=== PATIENT | female | born 1995 | race Two or more races ===

== ENCOUNTER 2018-01-18 18:43 | Emergency (ER) | payer OTHER ==
[2018-01-18 19:35] LABS: ABS Basophils 0 10^3/ul (0-0.2); ABS Eosinophils 0 10^3/ul (0-0.6); ABS Lymphocytes 0.8 10^3/ul (1.0-4.8); ABS Monocytes 0.4 10^3/ul (0-0.8); ABS Neutrophils 6.3 10^3/ul (1.5-7.7); ABS Nucleated RBC 0 10^3/ul; Eosinophil % 0.4 % (0-6); Hematocrit 43 % (35-47); Hemoglobin 14.6 g/dl (12.0-16.0); Lymphocyte % 10.9 % (25-47); Mean Corpuscular HGB Conc 35 g/dl (31-36); Mean Corpuscular Hemoglobin 30 pg (27-31); Mean Corpuscular Volume 88 fL (80-97); Mean Platelet Volume 8.5 um3 (7.4-10.4); Nucleated Red Blood Cells % 0.1; Platelet Count 213 10^3/ul (150-450); Red Blood Count 4.82 10^6/ul (4.00-5.40); Red Cell Distribution Width 13 % (10.5-15); White Blood Count 7.6 10^3/ul (3.5-10.8)
[2018-01-18 19:55] LABS: EGFR Non-African American 101.6 (>60)
[2018-01-18] MEDS ORDERED: NS 0.9% 1000 ML* 1,000 ML IV ONE (21:11)
--- NOTE | 2018-01-18 21:19 | ED ---
Abdominal Pain/Female - HPI Summary HPI Summary: This patient is a 22 year old F presenting to [facility] with a chief complaint of waxing and waning upper and umbilical abd pain that began 3 days ago. The patient rates the pain 8/10 in severity. Symptoms aggravated by eating. Symptoms alleviated by nothing. Patient reports diarrhea, nausea, vomiting, fever (resolved), and headache. - History of Current Complaint Chief Complaint: EDNauseaVomitDiarrh Stated Complaint: NAUSEA/ABD PAIN Time Seen by Provider: 01/18/18 20:51 Hx Obtained From: Patient ?: No Onset/Duration: Sudden Onset, Lasting Days, Still Present Timing: Constant Severity Initially: Severe Severity Currently: Severe Pain Intensity: 8 Pain Scale Used: 0-10 Numeric Location: Umbilical, Other - Upper Radiates: No Aggravating Factor(s): Food Alleviating Factor(s): Nothing Associated Signs and Symptoms: Positive: Other: - Positive diarrhea, nausea, vomiting, fever (resolved), and headache. Allergies/Adverse Reactions: Allergies Allergy/AdvReac Type Severity Reaction Status Date / Time No Known Allergies Allergy Verified 01/18/18 18:56 PMH/Surg Hx/FS Hx/Imm Hx Previously Healthy: Yes Opthamlomology History: Denies: Hx Legally Blind EENT History: Denies: Hx Deafness - Surgical History Hx Anesthesia Reactions: No - Immunization History Date of Influenza Vaccine: 2018 Infectious Disease History: No Infectious Disease History: Denies: Traveled Outside the [place] in Last 30 Days - Family History Known Family History: Negative: Cardiac Disease, Diabetes - Social History Occupation: Student Lives: Dormitory/Roommates Alcohol Use: None Hx Substance Use: No Substance Use Type: Reports: None Hx Tobacco Use: No Smoking Status (MU): Never Smoked Tobacco Review of Systems Positive: Fever Positive: Abdominal Pain, Vomiting, Diarrhea, Nausea Positive: Headache All Other Systems Reviewed And Are Negative: Yes Physical Exam - Summary Physical Exam Summary: Appearance: Well appearing, no pain distress Skin: warm, dry, reflects adequate perfusion Head/face: normal Eyes: EOMI, NALINI ENT: normal Neck: supple, non-tender Respiratory: CTA, breath sounds present Cardiovascular: RRR, pulses symmetrical Abdomen: RLQ tenderness, soft Bowel: present Musculoskeletal: normal, strength/ROM intact Neuro: normal, sensory motor intact, A&Ox3 Triage Information Reviewed: Yes Vital Signs On Initial Exam: Initial Vitals Temp Pulse Resp BP Pulse Ox 98.3 F 100 16 97/65 96 01/18/18 18:51 01/18/18 18:51 01/18/18 18:51 01/18/18 18:51 01/18/18 18:51 Vital Signs Reviewed: Yes Diagnostics - Vital Signs Vital Signs Temp Pulse Resp BP Pulse Ox 01/18/18 18:51 98.3 F 100 16 97/65 96 - Laboratory Lab Results: Lab Results 01/18/18 01/18/18 Range/Units 19:23 19:23 WBC 7.6 (3.5-10.8) 10^3/ul RBC 4.82 (4.00-5.40) 10^6/ul Hgb 14.6 (12.0-16.0) g/dl Hct 43 (35-47) % MCV 88 (80-97) fL MCH 30 (27-31) pg MCHC 35 (31-36) g/dl RDW 13 (10.5-15) % Plt Count 213 (150-450) 10^3/ul MPV 8.5 (7.4-10.4) um3 Neut % (Auto) 82.9 (38-83) % Lymph % (Auto) 10.9 L (25-47) % [place] % (Auto) 5.5 (0-7) % Eos % (Auto) 0.4 (0-6) % Baso % (Auto) 0.3 (0-2) % Absolute Neuts (auto) 6.3 (1.5-7.7) 10^3/ul Absolute Lymphs (auto) 0.8 L (1.0-4.8) 10^3/ul Absolute Monos (auto) 0.4 (0-0.8) 10^3/ul Absolute Eos (auto) 0 (0-0.6) 10^3/ul Absolute Basos (auto) 0 (0-0.2) 10^3/ul Absolute Nucleated RBC 0 10^3/ul Nucleated RBC % 0.1 Sodium 137 (135-145) mmol/L Potassium 4.1 (3.5-5.0) mmol/L Chloride 102 (101-111) mmol/L Carbon Dioxide 29 (22-32) mmol/L Anion Gap 6 (2-11) mmol/L BUN 16 (6-24) mg/dL Creatinine 0.73 (0.51-0.95) mg/dL Est GFR ( Amer) 123.0 (>60) Est GFR (Non-Af Amer) 101.6 (>60) BUN/Creatinine Ratio 21.9 H (8-20) Glucose 112 H (70-100) mg/dL Calcium 9.5 (8.6-10.3) mg/dL Total Bilirubin 0.60 (0.2-1.0) mg/dL AST 16 (13-39) U/L ALT 9 (7-52) U/L Alkaline Phosphatase 61 (34-104) U/L C-Reactive Protein 44.03 H (<8.01) mg/L Total Protein 7.7 (6.4-8.9) g/dL Albumin 4.5 (3.2-5.2) g/dL Globulin 3.2 (2-4) g/dL Albumin/Globulin Ratio 1.4 (1-3) Lipase 12 (11.0-82.0) U/L Beta HCG, Quant < 0.60 mIU/mL Result Diagrams: 01/18/18 19:23 01/18/18 19:23 Lab Statement: Any lab studies that have been ordered have been reviewed, and results considered in the medical decision making process. - CT CT Abdomen and Pelvis CT Interpretation Completed By: Radiologist Summary of CT Findings: CT abdomen and pelvis reveals, per radiologist, 1. There is mild to moderate wall thickening of the terminal and distal ileum and of the cecum. Some of this is incomplete distention however suspect there is underlying ileitis and limited colitis here. There is not significant. inflammatory change in the surrounding fat. 2. Normal appendix. 3. No obstruction, mass, or abscess. ED physician has reviewed this radiology report. Re-Evaluation - Re-Evaluation First Eval Re-Evaluation Time: 01:50 Change: Unchanged Comment: Discussed results and plan of care with patient Abdominal Pain Fem Course/Dx - Course Course Of Treatment: This patient is a 22 year old F presenting to [facility] with a chief complaint of waxing and waning upper and umbilical abd pain that began 3 days ago. Physical Exam Findings: RLQ tenderness. CT abdomen and pelvis reveals , per radiologist, 1. There is mild to moderate wall thickening of the terminal and distal ileum and of the cecum. Some of this is incomplete distention however suspect there is underlying ileitis and limited colitis here. There is not significant inflammatory change in the surrounding fat. 2. Normal appendix. 3. No obstruction, mass, or abscess. Bloodwork and UA obtained. In the ED course the patient was given contrast, fluids, Zofran, and Bactrim. Discussed with Dr. Allen, she recommended the patient does not to be admitted. Patient will be discharged with prescription for Protonix and Bactrim and follow up from PCP and GI. The patient is agreeable with this plan. - Diagnoses Differential Diagnosis: Positive: Appendicitis, Ovarian Cyst, Pancreatitis, Renal Colic Provider Diagnoses: Abdominal pain, Inflammatory bowel disease, UTI (urinary tract infection) - Provider Notifications Discussed Care Of Patient With: Marian Allen Time Discussed With Above Provider: 01:56 Instructed by Provider To: Other - Consult with Dr. Allen (hospitalist) at 0156. She recommends patient be discharged with GI follow up. Discharge - Sign-Out/Discharge Documenting (check all that apply): Patient Departure - Discharge home - Discharge Plan Condition: Stable Disposition: HOME Prescriptions: Pantoprazole TAB (NF) [Protonix TAB (NF)] 40 mg PO DAILY #30 tab Sulfamethox/Trimethoprim DS* [Bactrim DS 800/160 TAB*] 1 tab PO BID #6 tab Patient Education Materials: Sulfamethoxazole/Trimethoprim (By mouth), Pantoprazole (By mouth), Urinary Tract Infection in Women (ED), Abdominal Pain ( ED) Forms: *School Release Referrals: [facility] [Outside] Renetta Anderson MD [Medical Doctor] - Additional Instructions: RETURN TO THE EMERGENCY DEPARTMENT FOR NEW OR WORSENING SYMPTOMS - Billing Disposition and Condition Condition: STABLE Disposition: Home - Attestation Statements Document Initiated by Scribe: Yes Documenting Scribe: Jing Tovar Provider For Whom Kavin is Documenting (Include Credential): Irving Sullivan MD Scribe Attestation: Jing Hemphill, scribed for Irving Sullivan MD on 01/19/18 at 0210. Scribe Documentation Reviewed: Yes Provider Attestation: The documentation as recorded by the Jing zamudio accurately reflects the service I personally performed and the decisions made by Irving roth MD
[2018-01-18] MEDS ORDERED: Ondansetron INJ* 2 MG/ML VIAL IV ONE (21:50)
[2018-01-19] MEDS ORDERED: Iohexol 300* (CONTRAST) 10 ML SDV IV ONE (00:10)
[2018-01-19 00:38] LABS: Urine Appearance Cloudy; Urine Blood 3+ (Negative); Urine Color Yellow; Urine Ketones 1+ (Negative); Urine Protein 1+(30 mg/dL) (Negative); Urine Red Blood Cell 3+(>10/hpf) (Absent); Urine Specific Gravity 1.011 (1.010-1.030); Urine Urobilinogen Negative (Negative); Urine White Blood Cell 2+(11-20/hpf) (Absent)
--- NOTE | 2018-01-19 01:26 | RAD ---
EXAM: CT Abdomen and Pelvis With Intravenous Contrast EXAM DATE/TIME: 01/19/2018 12:09 AM CLINICAL HISTORY: 22 years old, female; Pain; Abdominal pain; Flank; Right lower quadrant (rlq); Additional info: Abd pain/appendicitis TECHNIQUE: Axial computed tomography images of the abdomen and pelvis with intravenous contrast. All CT scans at this facility use at least one of these dose optimization techniques: automated exposure control; mA and/or kV adjustment per patient size (includes targeted exams where dose is matched to clinical indication); or iterative reconstruction. Coronal and sagittal reformatted images were created and reviewed. CONTRAST: 67 ml of OMNI 300 administered intravenously. COMPARISON: No relevant prior studies available. FINDINGS: Lower thorax: No acute findings. ABDOMEN: Liver: Normal. No mass. Gallbladder and bile ducts: Normal. No calcified stones. No ductal dilation. Pancreas: Normal. No ductal dilation. Spleen: Normal. No splenomegaly. Adrenals: Normal. No mass. Kidneys and ureters: Normal. No hydronephrosis. Stomach and bowel: There is mild to moderate wall thickening of the terminal and distal ileum into the cecum. Some of this is incomplete distention however suspect there is underlying ileitis and limited colitis here. There is not significant inflammatory change in the surrounding fat. Appendix: Normal appendix. PELVIS: Bladder: Unremarkable as visualized. Reproductive: Unremarkable as visualized. ABDOMEN and PELVIS: Intraperitoneal space: See Stomach And Bowel Finding. Bones/joints: No acute fracture. No dislocation. Soft tissues: No obstruction, mass, or abscess. Vasculature: Normal. No abdominal aortic aneurysm. Lymph nodes: Normal. No enlarged lymph nodes. IMPRESSION: 1. There is mild to moderate wall thickening of the terminal and distal ileum and of the cecum. Some of this is incomplete distention however suspect there is underlying ileitis and limited colitis here. There is not significant inflammatory change in the surrounding fat. 2. Normal appendix. 3. No obstruction, mass, or abscess. To contact [facility] with a general question: [facility] - [phone] For direct physician to physician contact: Physician Hotline - [phone] [facility] ([facility] Facility ID #[id number])
[2018-01-19] MEDS ORDERED: Sulfamethox/Trimethoprim DS 800/160* TAB PO ONE (01:49)
[2018-01-19 01:59] VITALS: BP 119/71
== END 2018-01-19 02:15 | disposition home or self-care (01) ==
LOC: ED 18:43
DX: R10.31 Right lower quadrant pain (principal); K51.90 Ulcerative colitis, unspecified, without complications; N39.0 Urinary tract infection, site not specified
CPT/HCPCS: 36415; 74177; 80053; 81003; 81015; 83690; 84702; 85025; 86140; 87086; 96374; 99282; A9270-GY; J2405; Q9967

== ENCOUNTER 2019-01-02 17:52 | Emergency (ER) | payer SELFPAY ==
[2019-01-02 18:23] VITALS: BP 111/68
[2019-01-02] MEDS ORDERED: Ketorolac INJ* 30 MG/ML 1 ML VIAL IM ONE (19:27)
--- NOTE | 2019-01-02 19:45 | ED ---
Lower Extremity - HPI Summary HPI Summary: 23-year-old female presents with right knee pain today. States she was standing and she felt a pop in her knee. States she's unable to place weight on the area. This has never happened before. She denies any other injury. No fevers. No swelling noted to the area. She states that it hurts mostly when she straightens the knee. Hasn't taking anything for pain. - History of Current Complaint Chief Complaint: EDExtremityLower Stated Complaint: R KNEE INJURY PER PT Time Seen by Provider: 01/02/19 19:13 Pain Intensity: 10 - Allergies/Home Medications Allergies/Adverse Reactions: Allergies Allergy/AdvReac Type Severity Reaction Status Date / Time No Known Allergies Allergy Verified 01/02/19 19:21 Home Medications: Home Medications NK [No Home Medications Reported] 01/02/19 [History Confirmed 01/02/19] PMH/Surg Hx/FS Hx/Imm Hx Endocrine/Hematology History: Denies: Hx Anticoagulant Therapy Respiratory History: Denies: Hx Asthma Sensory History: Denies: Hx Legally Blind, Hx Deafness Opthamlomology History: Denies: Hx Legally Blind - Surgical History Hx Anesthesia Reactions: No - Immunization History Date of Influenza Vaccine: 2018 Infectious Disease History: No Infectious Disease History: Denies: Traveled Outside the [place] in Last 30 Days - Family History Known Family History: Negative: Cardiac Disease, Diabetes - Social History Alcohol Use: Occasionally Hx Substance Use: No Substance Use Type: Reports: None Hx Tobacco Use: No Smoking Status (MU): Current Every Day Smoker Review of Systems Negative: Fever Negative: Chest Pain Negative: Shortness Of Breath Positive: Myalgia - right knee pain All Other Systems Reviewed And Are Negative: Yes Physical Exam Triage Information Reviewed: Yes Vital Signs On Initial Exam: Initial Vitals Temp Pulse Resp BP Pulse Ox 99.5 F 78 17 111/68 99 01/02/19 18:19 01/02/19 18:19 01/02/19 18:19 01/02/19 18:19 01/02/19 18:19 Vital Signs Reviewed: Yes Appearance: Positive: Well-Appearing Skin: Positive: Warm, Dry Head/Face: Positive: Normal Head/Face Inspection Eyes: Positive: Normal, Conjunctiva Clear ENT: Positive: Pharynx normal Respiratory/Lung Sounds: Positive: Clear to Auscultation, Breath Sounds Present Cardiovascular: Positive: Normal, RRR Musculoskeletal: Positive: Limited @ - right knee, Other - tenderness right knee , good pulses, no laxity noted Neurological: Positive: Normal Psychiatric: Positive: Normal Procedures - Sedation Patient Received Moderate/Deep Sedation with Procedure: No Diagnostics - Vital Signs Vital Signs Temp Pulse Resp BP Pulse Ox 01/02/19 18:19 99.5 F 78 17 111/68 99 - Laboratory Lab Statement: Any lab studies that have been ordered have been reviewed, and results considered in the medical decision making process. - Radiology knee Radiology Interpretation Completed By: Radiologist Summary of Radiographic Findings: IMPRESSION: NO ACUTE OSSEOUS INJURY. IF SYMPTOMS PERSIST, RECOMMEND REPEAT IMAGING. Lower Extremity Course/Dx - Course Course Of Treatment: 23-year-old female presents with right knee pain today. States she was standing and she felt a pop in her knee. States she's unable to place weight on the area. This has never happened before. She denies any other injury. No fevers. No swelling noted to the area. She states that it hurts mostly when she straightens the knee. Hasn't taking anything for pain. On exam tenderness of right knee. Neurovascular intact. X-ray shows no fracture. Gave jeronimo and crutches. We'll have follow-up with orthopedic. Patient understands agrees with plan. - Diagnoses Differential Diagnosis/HQI/PQRI: Positive: Fracture (Closed), Sprain, Strain Provider Diagnoses: Right knee pain Discharge ED - Sign-Out/Discharge Documenting (check all that apply): Patient Departure - Discharge Plan Condition: Good Disposition: HOME Patient Education Materials: Knee Pain (ED) Referrals: No Primary Care Phys,NOPCP [Primary Care Provider] - Jaci Matt MD [Medical Doctor] - Additional Instructions: Use jeronimo as needed Stay off knee as much as possible Ice, elevate, Ibuprofen or Tylenol every 6 hours for pain Follow up with ortho if no improvement Return to ED if develop or any new or worsening symptoms - Billing Disposition and Condition Condition: GOOD Disposition: Home
== END 2019-01-02 20:45 | disposition home or self-care (01) ==
LOC: ED 17:52
DX: M25.561 Pain in right knee (principal); F17.210 Nicotine dependence, cigarettes, uncomplicated
CPT/HCPCS: 96372; 99282; J1885